=== PATIENT | female | born 1980 | race Caucasian/White ===

== ENCOUNTER 2016-09-28 11:18 | Emergency (ER) | payer MEDICAID ==
[2016-09-28] MEDS ORDERED: HYDROCODONE/ACETAMINOPHEN 5-325 MG TABLET PO ONE (11:33)
--- NOTE | 2016-09-28 11:37 | ER Document Report ---
ED Extremity Problem, Lower - General Chief Complaint: Ankle Injury Stated Complaint: RIGHT FOOT INJURY Mode of Arrival: Ambulatory Information source: Patient TRAVEL OUTSIDE OF THE [place] IN LAST 30 DAYS: No - HPI Patient complains to provider of: Injury Location: Ankle, Foot Notes: Patient states she was walking on a sidewalk yesterday evening when she tripped hyper plantarflexed her right foot under her and then injured her left foot. She now complains of pain to the dorsum of her right foot as well as the right lateral ankle and the distal aspect of the fourth and fifth metatarsals of the left foot. She denies any other injuries. She did not strike her head. No loss of consciousness. No numbness, tingling, weakness. No fever. No redness. No nausea, vomiting, diarrhea. She denies any other complaints or any other injuries. She states that she is unable to walk due to pain. Nothing seems to make her pain better. - Related Data Allergies/Adverse Reactions: No Known Allergies Allergy (Verified 09/28/16 11:22) Past Medical History - Social History Smoking Status: Unknown if Ever Smoked Family History: Reviewed & Not Pertinent Patient has suicidal ideation: No Patient has homicidal ideation: No Renal/ Medical History: Denies: Hx Peritoneal Dialysis Review of Systems - Review of Systems -: Yes All other systems reviewed and negative Physical Exam - Vital signs Vitals: Temp Pulse Resp BP Pulse Ox 98.1 F 98 16 122/82 100 09/28/16 11:24 09/28/16 11:24 09/28/16 11:24 09/28/16 11:24 09/28/16 11:24 - Notes Notes: GENERAL: alert, cooperative, nontoxic, no distress. HEAD: normocephalic, atraumatic EYES: conjunctiva pink without discharge, no external redness or swelling. EARS: no external swelling, no external redness NOSE: atraumatic, no external swelling MOUTH/THROAT: mucous membranes moist and pink NECK: soft, supple, full range of motion, no meningismus. CHEST: no distress, lungs clear and equal throughout. No wheezing, rales, rhonchi. CARDIAC: regular rate and rhythm, no murmur, normal capillary refill, normal pulses. BACK: full range of motion, no CVA tenderness. EXTREMITIES: Patient has mild swelling and tenderness to palpation of the distal fourth and fifth metatarsals of the left foot. There is no ankle tenderness on exam. No proximal tib-fib tenderness on exam. She has normal pulse normal cap refill and normal sensation of his foot. Achilles is intact with a normal Ochoa's test. Right foot exam shows swelling to the dorsal aspect of the right foot as well as tenderness and swelling to the lateral malleolus. Medial malleolus is unremarkable. Achilles is intact with a normal Ochoa's test. No proximal tib-fib tenderness. Normal pulse and sensation distally. Normal cap refill. Remainder of the physical exam is unremarkable. NEURO: alert and oriented 3, no focal deficits, full range of motion of all extremities. PYSCH: appropriate mood, affect. Patient is cooperative. SKIN: pink, warm, dry, no rash. Course - Re-evaluation Re-evalutation: 09/28/16 12:53 Patient is nontoxic appearing with stable vitals. The patient tripped and fell yesterday injuring her right ankle and both feet. X-ray showed no acute fractures. She was placed in splints for comfort. She is instructed to rest, ice, elevate her injuries. Follow up if not better in one week, sooner if getting worse. She'll be discharged home with NSAIDs. She'll be given orthopedic referral if needed. The patient is noted to have elevated blood pressure during today's emergency department visit. The patient was informed of this finding. The patient was instructed that this may be related to pre-hypertension and requires further evaluation with a primary care provider. The patient has no hypertensive symptoms at this time. The patient's emergency department workup and current diagnosis were explained to the patient and or family. Follow-up instructions were provided. Medications if prescribed were discussed. Instructions for when to return to the emergency department including specific worrisome symptoms were discussed with the patient and/or family. - Vital Signs Vital signs: Temp Pulse Resp BP Pulse Ox 98.1 F 98 16 122/82 100 09/28/16 11:24 09/28/16 11:24 09/28/16 11:24 09/28/16 11:24 09/28/16 11:24 - Diagnostic Test Radiology reviewed: Image reviewed, Reports reviewed - Right ankle, bilateral feet, negative for fracture. Procedures - Immobilization right ankle Pre-Proc Neuro Vasc Exam: Normal Immobilizer type: Ankle stirrup Performed by: RN Post-Proc Neuro Vasc Exam: Normal Alignment checked and good: Yes left foot Pre-Proc Neuro Vasc Exam: Normal Immobilizer type: Post-op shoe Performed by: PCT Post-Proc Neuro Vasc Exam: Normal Alignment checked and good: Yes Discharge - Discharge Clinical Impression: Bilateral foot pain Right ankle sprain Qualifiers: Encounter type: initial encounter Involved ligament of ankle: other ligament Qualified Code(s): S93.491A - Sprain of other ligament of right ankle, initial encounter Condition: Stable Disposition: HOME, SELF-CARE Instructions: Ankle Stirrup Splint ([facility]), Ice & Elevation ([facility]), Sprained Ankle ([facility]) Additional Instructions: Take medications as prescribed. Rest, ice, elevate your injuries. Wear splint as needed for comfort. Follow-up if not better in one week, sooner for increased pain, fever, redness, or any further concerns. Your blood pressure was elevated during today's visit. Have this rechecked with your doctor. Prescriptions: Diclofenac Sodium [Voltaren] 75 mg PO BID #20 tablet.dr Forms: Elevated Blood Pressure Referrals: DARCIE ROSS MD [ACTIVE STAFF] - Follow up in 1 week
[2016-09-28 13:17] VITALS: BP 111/64
== END 2016-09-28 13:17 | disposition home or self-care (01) ==
LOC: ER 11:18
PROC: 2W3SX1Z Immobilization of Right Foot using Splint (ICD-10-PCS; principal; 2016-09-28)
DX: S93.401A Sprain of unspecified ligament of right ankle, initial encounter (principal); M79.672 Pain in left foot; M79.671 Pain in right foot; W18.40XA Slipping, tripping and stumbling without falling, unspecified, initial encounter
CPT/HCPCS: 99283; 73610; 73630; 29515; L1902